=== PATIENT | male | born 1995 | race Caucasian/White ===

== ENCOUNTER 2017-12-30 00:37 | Outpatient (CLI) | payer MEDICAID, SELFPAY ==
--- NOTE | 2017-12-30 14:35 | DI.RAD_ITS ---
SYMPTOMS/DIAGNOSIS: CHRONIC PAIN, G89.29, LOW BACK PAIN, M54.5 LUMBAR SPINE: AP, lateral and bilateral oblique views. There are five lumbar-type vertebral bodies. There is normal alignment. No spondylolysis or spondylolisthesis is seen. The vertebral bodies, disc spaces and posterior elements are well maintained. The bones are normally mineralized. IMPRESSION: Negative examination.
== END 2017-12-30 00:57 ==
PROVIDERS: PCP Family Medicine; Visit Provider Family Medicine
DX: M54.5 Low back pain (principal); G89.29 Other chronic pain
CPT/HCPCS: 72110

== ENCOUNTER 2020-06-09 09:38 | Outpatient (CLI) | payer MEDICAID, SELFPAY ==
[2020-06-10 02:02] LABS: COVID-19 RT-PCR UVMMC Result Positive (Negative)
== END 2020-06-09 09:39 | disposition home or self-care (01) ==
PROVIDERS: PCP Family Medicine; Visit Provider Nurse Practitioner Family
DX: Z20.822 Contact with and (suspected) exposure to COVID-19 (principal)
CPT/HCPCS: U0003

== ENCOUNTER 2020-08-05 18:21 | Emergency (ER) | payer MEDICAID, SELFPAY ==
[2020-08-05] VITALS (9 sets, daily range): BP systolic 128–156; BP diastolic 77–98; PULSE 90–111; RESP 17–25; TEMP 36.6–36.7; O2SAT 99–100
--- NOTE | 2020-08-05 18:30 | RT.EKG_ITS ---
APPROVED REPORT Exam: Resting ECG Reason for Exam: not feeling well, s/p COVID Patient Location: E HR:99 bpm ECG Measurements Heart Rate 99 AXIS DE 175 P 55 QRSd 90 QRS 16 QT 342 T 41 QTc 439 Conclusion Sinus rhythm...normal P axis, V-rate 60- 99
--- NOTE | 2020-08-05 18:37 | W.ED.GENAD ---
Discharge Plan Disposition Patient Disposition: HOME Condition: Good Discharge Details Clinical Impression: Lightheaded, Palpitations Primary Care Provider: Milan Salazar ED Provider: Ha Paige Home Meds and New Rx's Prescriptions: Continued meloxicam 15 mg tablet 15 mg PO DAILY PRN (Reason: chronic low back pain) Qty: 30 RF: 2 buspirone 10 mg tablet 10 mg PO TID 30 Days Qty: 90 RF: 11 nebulizer RF: 0 levalbuterol HCl [Xopenex] 0.63 MG/3 ML solution for nebulization 1 vial Inhalation TID PRN Qty: 1 RF: 2 Discharge Instructions Instructions: Heart Palpitations (ED) Additional Instructions: Laboratory studies look good here. There were no arrhythmias on the monitor here. Follow-up with primary care if continued symptoms for consideration of 14-day account retention representative. Return to ED for chest pain, shortness of breath, syncope, mental status changes, other concerns Referrals: Milan Salazar [Primary Care Provider] - Medical Decision Making <Omero Shannon MD - Last Filed: 08/05/20 19:24> 24 yo male with hx of asthma, who comes in with chief complaint of not feeling himself for 2 weeks. He was diagnosed with covid in May when he had cold symptoms that resolved. HE had been doing well up until two weeks ago when he started to have episodes where he did not feel himself and has trouble expanding on what this felt like. He states he would feel anxious and lightheaded and felt like he couldn't catch his breath but knew he could. HE denies chest pain, headache, paresthesias. He denies drug use, drinks occasionally. No cough. HE appears anxious on exam. He has clear lung sounds, no murmurs, soft nontender abdomen, no focal motor or sensation deficits on exam. He is mildly tachycardic otherwise stable vital signs. Suspect this could be partly due to anxiety, will treat with ativan. Will evaluate for electrolyte abnormalities and also anemia, no chest pain so doubt acs. Given the tachycardia and intermittent lightheaded sensation will obtain d dimer to evaluate for PE as his ramos score is low. Differential Diagnosis Differential Diagnosis: anxiety, anemia, electrolyte abnormality ECG Data Attestation: I personally reviewed and interpreted this ECG (s) as follows: Prior ECG tracings: not available for review Interpretation: sinus rhythm, rate of 99, pr 175, no acute st t wave ischemic findings <Ha Paige MD - Last Filed: 08/05/20 22:22> Patient signed out to me pending laboratory studies and reevaluation after Ativan and fluids. Patient reports a couple weeks episode of intermittent chilled feeling, palpitations, not feeling right. He denies any pain, trouble breathing, leg swelling, fever, vomiting, neurologic changes. Patient heart rate does go up when I am in the room with him. For the most part it is sinus below 100 when he is alone. Laboratory studies are unremarkable other than slight bump in his AST and ALT. Troponin is negative. D-dimer is negative. TSH is normal. At this time patient will be discharged home to follow-up with primary care if continued symptoms. Consider 14-day account retention representative though monitoring here revealed no arrhythmias just sinus rhythm and sinus tachycardia. Return to ED for chest pain, shortness of breath, mental status changes, neurologic changes, other concerns Lab Data Lab results reviewed: Yes I reviewed the patient's lab results. HPI <Omero Shannon MD - Last Filed: 08/05/20 19:24> General Mode of arrival: ambulatory. Date/Time Provider Initiated Documentation: 08/05/20 18:22. Limitations to Documentation: no limitations. Information obtained by: patient. History of Present Illness 24 year old M presents to the emergency department with the chief complaint of not feeling right, described as moderate, Patient started experiencing this week(s) (2) and it has been intermittent. No relieving factors improve symptom(s), No exacerbating factors reported . Patient did receive the following treatments prior to arrival, none Related Data Home Medications Medication Instructions Recorded Confirmed Nebulizer 07/03/15 05/11/18 levalbuterol HCl [Xopenex] 1 vial INHALATION TID PRN #1 box 08/17/15 08/05/20 meloxicam 15 mg tablet 15 mg PO DAILY PRN #30 tab 12/22/17 08/05/20 buspirone 10 mg tablet 10 mg PO TID 30 Days #90 tab-cap 05/11/18 08/05/20 Previous Rx's Medication Instructions Recorded meloxicam 15 mg tablet 15 mg PO DAILY PRN #30 tab 12/22/17 buspirone 10 mg tablet 10 mg PO TID 30 Days #90 tab-cap 05/11/18 Allergies Allergy/AdvReac Type Severity Reaction Status Date / Time seasonal allergies Allergy Mild Uncoded 08/05/20 18:39 General Stated Complaint: GenMedical JOANNA: 3 Review of Systems <Omero Shannon MD - Last Filed: 08/05/20 19:24> All systems reviewed & are unremarkable except as noted in HPI and below Constitutional Constitutional: Denies chills, Denies fever(s) and Denies weakness Cardiovascular Cardiovascular: Denies chest pain Respiratory Respiratory: Denies cough Gastrointestinal Gastrointestinal: Denies abdominal pain, Denies nausea and Denies vomiting Musculoskeletal Musculoskeletal: Denies joint swelling Neurologic Neurologic: Denies weakness PFSH <Omero Shannon MD - Last Filed: 08/05/20 19:24> Medical History (Updated 08/05/20 @ 22:18 by Ha Paige MD) Asthma occurring only with upper respiratory infection (05/15/15) Obesity Family History Mother Asthma Father Essential hypertension Sister No problems noted. Brother No problems noted. Grandfather No problems noted. Grandfather No problems noted. Grandmother No problems noted. Maternal Uncle No problems noted. Maternal Aunt No problems noted. Grandmother No problems noted. 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 Firearms in home: No Do you feel safe at home: Yes Do you feel safe in your relationship?: Yes Victim of physical abuse: No Victim of emotional abuse: No Victim of sexual abuse: No Exam <Omero Shannon MD - Last Filed: 08/05/20 19:24> Const General: no acute distress and anxious Orientation: alert HENMT Head: normal to inspection Ears: external ears normal General nose exam: external nose normal Mouth: moist mucous membranes Eyes General: appearance normal, both eyes and all related structures Neck Neck: normal visual inspection Resp Effort & Inspection: normal respiratory effort and able to speak in complete sentences Cardio Rate: regular rate Skin General skin exam: no rashes or lesions noted Neuro General: patient alert and patient oriented x3 Extrem General: normal to inspection Psych Mental Status: mental status grossly normal Course <Omero Shannon MD - Last Filed: 08/05/20 19:24> Vital Signs Vital signs: Vital Signs Temperature 36.6 C 08/05/20 18:31 Pulse 105 H 08/05/20 18:31 Respiratory Rate 17 08/05/20 18:31 Blood Pressure 156/94 H 08/05/20 18:31 Pulse Oximetry 100 08/05/20 18:31 Temperature 36.6 C 08/05/20 18:31 Temperature Source Temporal Artery Scan 08/05/20 18:31 Pulse 105 H 08/05/20 18:31 Respiratory Rate 17 08/05/20 18:31 Blood Pressure 156/94 H 08/05/20 18:31 Blood Pressure Position Supine 08/05/20 18:31 Pulse Oximetry 100 08/05/20 18:31 Oxygen Delivery Method Room Air 08/05/20 18:31 Oxygen Flow Rate 0 08/05/20 18:31 Pain Level 0 08/05/20 18:31 Sign Out <Omero Shannon MD - Last Filed: 08/05/20 19:24> Sign Out Data: Sign Out Comment: covid in may with mild cold symptoms, felt better until two weeks ago episodes of feeling lightheaded and like he couldn't catch his breath. Anxious on arrival, given ativan, pending labs and reassessment Last updated by Omero Shannon MD at 08/05/20 19:15
[2020-08-05] MEDS: LORazepam 2 MG/ML VIAL 1 MG IVP (19:05)
[2020-08-05 19:18] LABS: Abs Immature Grans 0.03 10^3/uL (0.0-0.06); Absolute Basophil Count 0.03 10^3/uL (0.0-0.2); Absolute Eosinophil Count 0.07 10^3/uL (0.0-0.7); Absolute Lymphocyte Count 1.38 10^3/uL (1.2-3.4); Absolute Monocyte Count 0.78 10^3/uL (0.1-0.8); Absolute Neutrophil Count 5.53 10^3/uL (1.2-6.7); Basophils % 0.4; Eosinophils % 0.9; HCT 41.4 % (40.0-50.0); HGB 13.9 g/dL (13.5-17.5); Immature Grans % 0.4; Lymphocytes % 17.6; MCH 30.8 pg (27.0-33.0); MCHC 33.6 % (32.0-36.0); MCV 91.8 fL (80-95); MPV 9.4 fL (8.0-11.0); Neutrophils % 70.7; Nucleated RBC 0 %; Platelet Count 296 10^3/uL (130-400); RBC 4.51 10^6/uL (4.36-5.78); RDW 13.5 % (11.8-14.1); WBC 7.82 10^3/uL (4.4-10.8)
[2020-08-05 19:38] LABS: ALT 112 U/L (16-63); AST 80 U/L (15-37); Alkaline Phosphatase 64 U/L (46-116); Anion Gap 12.3 mmol/L (3-11); BUN 11 mg/dL (7-18); Bilirubin, Total 0.4 mg/dL (0.2-1.0); CO2 23.7 mmol/L (21.0-32.0); CREATININE 1.1 mg/dL (0.70-1.30); Calcium 9.6 mg/dL (8.5-10.1); Chloride 104 mmol/L (98-107); Glucose 98 mg/dL (74-106); Lipase 97 U/L (73-393); Magnesium 1.8 mg/dL (1.8-2.4); Potassium 3.9 mmol/L (3.5-5.1); Sodium 140 mmol/L (136-145); Total Protein 7.9 g/dL (6.4-8.2)
[2020-08-05 19:45] LABS: Troponin I < 0.05 ng/mL (<0.06)
[2020-08-05 20:06] LABS: D-Dimer 277 ng/mlFEU (<500)
[2020-08-05 20:17] LABS: ETHANOL BLOOD < 3.0 mg/dL (<3)
[2020-08-05] MEDS: Normal Saline 1,000 ML 1000 ML IV (20:18)
[2020-08-05 21:31] LABS: TSH (W/Ref FT4) 0.87 uIU/mL (0.36-3.74)
== END 2020-08-05 22:40 | disposition home or self-care (01) ==
PROVIDERS: Emergency Medicine; Emergency Provider Emergency Medicine; PCP Family Medicine
DX: R42 Dizziness and giddiness (principal); R00.2 Palpitations
CPT/HCPCS: 80053; 80307; 83690; 93005; 96361; 96374; 99284; 80320; 81003; 83735; 84443; 84484; 85025; 85379; 93010; 99283; J2060

== ENCOUNTER 2020-10-27 12:14 | Outpatient (REF) | payer MEDICAID, SELFPAY ==
[2020-10-27 20:44] LABS: Calculated LDL 135 mg/dL (<100); Cholesterol 197 mg/dL (<200); HDL Cholesterol 43 mg/dL (40-60); Triglyceride 95 mg/dL (<150)
[2020-10-27 20:45] LABS: Hemoglobin A1C 5.1 % (<5.7)
== END 2020-10-27 12:15 | disposition home or self-care (01) ==
LOC: LBN 12:14
PROVIDERS: PCP Nurse Practitioner; Visit Provider Nurse Practitioner
DX: Z13.220 Encounter for screening for lipoid disorders (principal); Z13.1 Encounter for screening for diabetes mellitus
CPT/HCPCS: 80061; 83036

== ENCOUNTER 2021-08-20 11:01 | Emergency (ER) | payer MEDICAID, SELFPAY ==
[2021-08-20 11:08] VITALS: BP 146/92; PULSE 94; RESP 18; TEMP 36.3; O2SAT 99
--- NOTE | 2021-08-20 11:27 | DI.RAD_ITS ---
Exam(s) XR ANKLE LT COMPLETE EXAM: XR ANKLE LT COMPLETE CLINICAL HISTORY: pain post twisting TECHNIQUE: 2D digital imaging was performed of the left ankle. Three images were obtained. AP, lat eral and oblique views were obtained. COMPARISON: No exams were available for comparison FINDINGS: BONES: No acute fracture is present. No bony destructive lesion is seen. JOINTS:The ankle mortise is normally aligned. SOFT TISSUE: There is soft tissue swelling about the ankle. IMPRESSION: No acute fracture or dislocation. DATA REPOSITORY: RADIATION DOSE DELIVERED:
--- NOTE | 2021-08-20 11:36 | DI.VRAD_ITS ---
PROCEDURE INFORMATION: Exam: XR Left Ankle Exam date and time: 08/20/2021 11:24 AM Age: 25 years old Clinical indication: Ankle; Left; Patient HX: Pain post twisting. TECHNIQUE: Imaging protocol: XR Left ankle. Views: 3 or more views. COMPARISON: No relevant prior studies available. FINDINGS: Bones/joints: No acute fracture or malalignment. Intact ankle mortise. Soft tissues: Mild soft tissue swelling about the ankle. IMPRESSION: Mild soft tissue swelling. No radiographic evidence of acute osseous injury. Dictated and Authenticated by: Shanique Blackman MD. Ordering:GEM Winn MD
--- NOTE | 2021-08-20 11:36 | ED.GENADUL_ITS ---
Discharge Plan Disposition Patient Disposition: HOME Condition: Stable Discharge Details Clinical Impression: Ankle sprain Primary Care Provider: Kera Thurman ED Provider: Tatum Jeter Home Meds and New Rx's Prescriptions: Continued fluoxetine 40 mg capsule 40 mg PO DAILY Qty: 90 4RF nebulizer acetaminophen 500 mg Capsule 1,500 mg PO PRN PRN Discharge Instructions Additional Instructions: Ice, elevate Ibuprofen 600 mg every 8 hours with food as needed for pain Use boot as needed for the next several days to 1 week Weightbearing as tolerated Follow-up with PCP in 1 week with persistent pain for reassessment Return earlier should you have new or including worsening pain, numbness, tingling Stand Alone Forms: Work Release Discharge Data Discharge Date/Time-TO BE ENTERED AT DEPARTURE: 08/20/21 12:00 Medical Decision Making Placed in boot for comfort Return precautions discussed and patient expressed understanding Repeat imaging in 1 week with persistent pain recommended X-ray interpretation and images reviewed by ny HPI General Mode of arrival: ambulatory . Date/Time Provider Initiated Documentation: 08/20/21 11:07 . Limitations to Documentation: no limitations . Information obtained by: patient . HPI Narrative: This 25-year-old male presents with report of left ankle pain after twisting injury. Denies any additional injuries. States the pain is exacerbated predominantly with walking. Denies any knee pain or foot pain. Related Data Home Medications Medication Instructions Recorded Confirmed Nebulizer 07/03/15 10/27/20 fluoxetine 40 mg capsule 40 mg PO DAILY #90 tab-caps 10/27/20 08/20/21 acetaminophen 500 mg capsule 1,500 mg PO PRN PRN 08/20/21 08/20/21 Previous Rx's Medication Instructions Recorded fluoxetine 40 mg capsule 40 mg PO DAILY #90 tab-caps 10/27/20 Allergies Allergy/AdvReac Type Severity Reaction Status Date / Time seasonal allergies Allergy Mild Uncoded 08/20/21 11:10 General Stated Complaint: Orthopedic JOANNA: 4 Review of Systems Narrative: Review of systems obtained x3 and negative aside from indication PFSH All Active Problems (Updated 08/20/21 @ 11:43 by AUTUMN Grewal) Ankle sprain (Acute) Anxiety (Chronic) Obesity (Chronic) Depression (Acute 08/17/15) Medical History (Updated 08/20/21 @ 11:43 by ATUUMN Grewal) Asthma occurring only with upper respiratory infection (05/15/15) Family History Mother Asthma Father Essential hypertension Sister No problems noted. Brother No problems noted. Grandfather No problems noted. Grandfather No problems noted. Grandmother No problems noted. Maternal Uncle No problems noted. Maternal Aunt No problems noted. Grandmother No problems noted. Social History (Updated 12/17/17 @ 12:39 by Madeline Dudley) Smoking/Tobacco Use Status: Current-Occasional Tobacco Type: cigarettes Smoking risk assessment performed?: Yes Alcohol Intake: current Alcohol Intake frequency: a few times a week Drug use: Socially Substance use type: marijuana Adopted: No Foster care: No Household members: other Details: 3 Pets and animals: Yes What type of physical activity do you participate in: none Modesta/Rastafarian: Evangelical Seatbelt use: sometimes Helmet use: Yes Helmet use: always Drive intox or ride w/intox reefer truck driver: No Firearms in home: No Do you feel safe at home: Yes Do you feel safe in your relationship?: Yes Victim of physical abuse: No Victim of emotional abuse: No Victim of sexual abuse: No Exam Const General: cooperative and comfortable Extrem Other: Left ankle with minimal tenderness, no tenderness to left knee or left foot Neurovascularly intact No visible evidence of trauma Evidence of DVT Course Vital Signs Vital signs: Vital Signs Temperature 36.3 C L 08/20/21 11:08 Pulse 94 H 08/20/21 11:08 Respiratory Rate 18 08/20/21 11:08 Blood Pressure 146/92 H 08/20/21 11:08 Pulse Oximetry 99 08/20/21 11:08 Temperature 36.3 C L 08/20/21 11:08 Temperature Source Temporal Artery Scan 08/20/21 11:08 Pulse 94 H 08/20/21 11:08 Respiratory Rate 18 08/20/21 11:08 Respiratory Effort Non-Labored 08/20/21 11:13 Blood Pressure 146/92 H 08/20/21 11:08 Blood Pressure Position Sitting 08/20/21 11:08 Pulse Oximetry 99 08/20/21 11:08 Oxygen Delivery Method Room Air 08/20/21 11:08 Oxygen Flow Rate 0 08/20/21 11:08 PAWSS Have you Been Recently Intoxicated or Drunk Within the Last 30 days?: No Have you Ever Experienced Previous Episodes of Alcohol Withdrawal?: No Have you ever Experienced Withdrawal Seizures?: No Have you ever Experienced Delirium Tremens(DT)s?: No Have you ever undergone Alcohol Rehabilitation Treatment (i.e, inpt ot outpatient treatment programs)?: No Have you ever Experienced Blackouts?: No Have you ever Combined Alcohol with other Downers within the last 90 days?: No Have you ever Combined Alcohol with any other Substance of Abuse during the last 90 days?: No Positive Blood Alcohol level on Presentation? [PCS.BAL]: No Evidence of Increased Autonomic Activity (i.e. HR>120, tremor, sweating, agitation, nausea)?: No Result: 0
== END 2021-08-20 12:00 | disposition home or self-care (01) ==
PROVIDERS: Emergency Provider Physician Assistant; PCP Nurse Practitioner
DX: S93.492A Sprain of other ligament of left ankle, initial encounter (principal); X50.1XXA Overexertion from prolonged static or awkward postures, initial encounter
CPT/HCPCS: 29515; 99283; 73610

== ENCOUNTER 2021-10-16 09:21 | Emergency (ER) | payer MEDICAID, SELFPAY ==
[2021-10-16 09:23] VITALS: BP 146/94; PULSE 77; RESP 17; TEMP 36.1; O2SAT 98
--- NOTE | 2021-10-16 09:35 | ED.GENADUL_ITS ---
Discharge Plan Disposition Patient Disposition: HOME Condition: Stable Discharge Details Clinical Impression: Objective tinnitus of left ear Primary Care Provider: Kera Thurman ED Provider: Omero Shannon Home Meds and New Rx's Prescriptions: New prednisone 20 mg tablet 60 mg PO DAILY 5 Days Qty: 15 0RF Continued fluoxetine 40 mg capsule 40 mg PO DAILY Qty: 90 4RF nebulizer acetaminophen 500 mg Capsule 1,500 mg PO PRN PRN Discharge Instructions Additional Instructions: you should be contacted with an appointment with an ears nose and throat specialist avoid taking aspirin or nsaids such as ibuprofen if you have severe pain, fevers, changes in vision or feel more ill return to the emergency department Medical Decision Making 25 yo male who denies chronic medical problems and is on fluoxetine for anxiety/depression comes in with complaint of a mild ringing in his left ear that is constant and non pulsatile. He states he woke up at around 3am and went to the bathroom and then noticed a mild ringing in the left ear. He states he was able to fall asleep, and woke up this morning and still had the ringing so came here. He denies trauma to the head or falls. He denies headache, ear pain, neck pain. No vision changes or speech changes. He has no symptoms in the right ear. He arrives stable with normal gait, caox4 with clear speech. Both external auditory canals and also tm's appear normal, no erythema, bulging or perforations. EOMI, perrl, no cranial nerve deficits. He does take ibuprofen as needed but hasn't taken any in 3 days and follows dosing instructions on packaging, denies use of aspirin. He denies any noticeable difference in his hearing. Suspect this could be idiopathic tinnitus and less likely ototoxic. No findings on history or exam to suggest dissection, it is also not pulsatile in description. Will trial prednisone to see if it helps with his symptoms though my suspicion for Menierie's is low given no vertigo symptoms. Will refer to ENT and return precautions given Differential Diagnosis Differential Diagnosis: idiopathic tinnnitus, nsaids, meniere HPI General Mode of arrival: ambulatory . Date/Time Provider Initiated Documentation: 10/16/21 09:22 . Limitations to Documentation: no limitations . Information obtained by: patient . History of Present Illness 25 year old M presents to the emergency department with the chief complaint of left ear ringing sensation, described as moderate, and is localized to the left. Patient started experiencing this hour(s) (6) and it has been constant. No relieving factors improve symptom(s), No exacerbating factors reported . Patient notes no other symptoms.. Patient did receive the following treatments prior to arrival, none Related Data Home Medications Medication Instructions Recorded Confirmed Nebulizer 07/03/15 10/27/20 fluoxetine 40 mg capsule 40 mg PO DAILY #90 tab-caps 10/27/20 10/16/21 acetaminophen 500 mg capsule 1,500 mg PO PRN PRN 08/20/21 10/16/21 prednisone 20 mg tablet 60 mg PO DAILY 5 days #15 tabs 10/16/21 Previous Rx's Medication Instructions Recorded fluoxetine 40 mg capsule 40 mg PO DAILY #90 tab-caps 10/27/20 prednisone 20 mg tablet 60 mg PO DAILY 5 days #15 tabs 10/16/21 Allergies Allergy/AdvReac Type Severity Reaction Status Date / Time seasonal allergies Allergy Mild Uncoded 10/16/21 09:29 General Stated Complaint: EarProblem JOANNA: 4 Review of Systems All systems reviewed & are unremarkable except as noted in HPI and below Constitutional Constitutional: Denies chills, Denies fever(s) and Denies weakness Eyes Eyes: Denies loss of vision ENT Ears, Nose, Mouth, and Throat: Denies change in voice Cardiovascular Cardiovascular: Denies chest pain and Denies dyspnea Respiratory Respiratory: Denies cough and Denies dyspnea Gastrointestinal Gastrointestinal: Denies abdominal pain, Denies nausea and Denies vomiting Musculoskeletal Musculoskeletal: Denies joint swelling Integumentary/Breasts Skin/Breast: Denies rash Neurologic Neurologic: Denies loss of vision and Denies weakness [facility] All Active Problems (Updated 10/16/21 @ 09:44 by Omero Shannon MD) Objective tinnitus of left ear (Acute) Anxiety (Chronic) Obesity (Chronic) Depression (Acute 08/17/15) Medical History (Updated 10/16/21 @ 09:44 by Omero Shannon MD) Asthma occurring only with upper respiratory infection (05/15/15) Family History Mother Asthma Father Essential hypertension Sister No problems noted. Brother No problems noted. Grandfather No problems noted. Grandfather No problems noted. Grandmother No problems noted. Maternal Uncle No problems noted. Maternal Aunt No problems noted. Grandmother No problems noted. 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 Firearms in home: No Do you feel safe at home: Yes Do you feel safe in your relationship?: Yes Victim of physical abuse: No Victim of emotional abuse: No Victim of sexual abuse: No Exam Const General: no acute distress Orientation: alert HENMT Head: normal to inspection Ears: external ears normal, TM's normal bilaterally and hearing grossly not impaired General nose exam: external nose normal Mouth: moist mucous membranes Eyes General: appearance normal, both eyes and all related structures Eyelids: eyelids normal Pupils: PERRL EOM: EOM intact bilaterally Neck Neck: normal visual inspection Resp Effort & Inspection: normal respiratory effort and able to speak in complete sentences Cardio Rate: regular rate Skin General skin exam: no rashes or lesions noted Neuro General: patient alert and patient oriented x3 Extrem General: normal to inspection Psych Mental Status: mental status grossly normal Course Vital Signs Vital signs: Vital Signs Temperature 36.1 C L 10/16/21 09:23 Pulse 77 10/16/21 09:23 Respiratory Rate 17 10/16/21 09:23 Blood Pressure 146/94 H 10/16/21 09:23 Pulse Oximetry 98 10/16/21 09:23 Temperature 36.1 C L 10/16/21 09:23 Temperature Source Temporal Artery Scan 10/16/21 09:23 Pulse 77 10/16/21 09:23 Respiratory Rate 17 10/16/21 09:23 Respiratory Effort Non-Labored 10/16/21 09:27 Blood Pressure 146/94 H 10/16/21 09:23 Blood Pressure Position Sitting 10/16/21 09:23 Pulse Oximetry 98 10/16/21 09:23 Oxygen Delivery Method Room Air 10/16/21 09:23 Oxygen Flow Rate 0 07/26/22 09:23 Pain Level 0 10/16/21 09:27 PAWSS Have you Been Recently Intoxicated or Drunk Within the Last 30 days?: No Have you Ever Experienced Previous Episodes of Alcohol Withdrawal?: No Have you ever Experienced Withdrawal Seizures?: No Have you ever Experienced Delirium Tremens(DT)s?: No Have you ever undergone Alcohol Rehabilitation Treatment (i.e, inpt ot outpatient treatment programs)?: No Have you ever Experienced Blackouts?: No Have you ever Combined Alcohol with other Downers within the last 90 days?: No Have you ever Combined Alcohol with any other Substance of Abuse during the last 90 days?: No Result: 0
--- NOTE | 2021-10-16 09:39 | NUR.NOTE ---
Per Dr. Shannon referral made to ENT for tinnitus in 1-2 weeks. Faxed the referral and put in the child care center administrator's box for follow up.Nursing Note:
== END 2021-10-16 09:50 | disposition home or self-care (01) ==
PROVIDERS: Emergency Provider Emergency Medicine; PCP Nurse Practitioner
DX: H93.12 Tinnitus, left ear (principal); F32.A Depression, unspecified; J45.909 Unspecified asthma, uncomplicated; F17.210 Nicotine dependence, cigarettes, uncomplicated; Z79.52 Long term (current) use of systemic steroids
CPT/HCPCS: 99283; 99284